=== PATIENT | male | born 1945 | race Hispanic/Latino ===

== ENCOUNTER 2018-11-17 20:36 | Emergency (ER) | payer OTHER ==
--- NOTE | 2018-11-17 21:34 | XRay Report ---
Right knee 3 views INDICATION: Right knee pain. IMPRESSION: Chronic posttraumatic deformity of the patella without acute abnormality. 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 Signer Name: Jeremy Leo MD Signed: 11/17/2018 9:30 PM Workstation Name: [id number]
[2018-11-17] MEDS ORDERED: DECADRON IM ONE (23:12)
[2018-11-17] MEDS ORDERED: NORCO 5/325 PO ONE (23:12)
[2018-11-17 23:47] VITALS: BP 160/84
--- NOTE | 2018-11-18 00:18 | Emergency Department Report ---
ED Lower Extremity HPI - General Chief Complaint: Extremity Injury, Lower Stated Complaint: R KNEE PAIN Time Seen by Provider: 11/17/18 23:10 Source: patient Mode of arrival: Wheelchair Limitations: No Limitations - History of Present Illness Initial Comments: pt is a 73-year-old male who presents for right knee pain history of trauma to same . Patient states he twisted his right knee one week ago and unable to get in to see orthopedics until next week pain described as 7/10 and is exacerbated with prolonged-standing or sitting, there is no numbness no tingling, pt does complain of swelling however intermittent swelling is chronic problem for this patient. MD Complaint: knee injury Onset/Timin -: days(s) Injury: Knee: Right Type of Injury: hyperextension Place: home Severity: moderate Severity scale (0 -10): 5 Improves With: rest Worsens With: weight bearing, movement, palpation Associated Symptoms: swelling, unable to bear weight - Related Data Previous Rx's Medication Instructions Recorded Last Taken Type Capsaicin/Me-Salicylate/Menth 1 applicatio TP TID PRN #1 tube 11/18/18 Unknown Rx [Medrox Ointment] Allergies Allergy/AdvReac Type Severity Reaction Status Date / Time No Known Allergies Allergy Unverified 11/17/18 20:40 ED Review of Systems ROS: Stated complaint: R KNEE PAIN Other details as noted in HPI Constitutional: denies: chills, fever Eyes: denies: eye pain, eye discharge, vision change ENT: denies: ear pain, throat pain Respiratory: denies: cough, shortness of breath, wheezing Cardiovascular: denies: chest pain, palpitations Endocrine: no symptoms reported Gastrointestinal: denies: abdominal pain, nausea, vomiting, diarrhea Genitourinary: denies: urgency, dysuria Musculoskeletal: joint swelling, arthralgia, myalgia. denies: back pain Skin: denies: rash, lesions Neurological: denies: headache, weakness, paresthesias Psychiatric: denies: anxiety, depression Hematological/Lymphatic: denies: easy bleeding, easy bruising ED Past Medical Hx - Surgical History Past Surgical History?: Yes Additional Surgical History: right knee s/p - Social History Smoking Status: Never Smoker Substance Use Type: None - Medications Home Medications: Home Medications Medication Instructions Recorded Confirmed Last Taken Type Capsaicin/Me-Salicylate/Menth 1 applicatio TP TID PRN #1 tube 11/18/18 Unknown Rx [Medrox Ointment] ED Physical Exam - General Limitations: No Limitations General appearance: alert, in no apparent distress - Head Head exam: Present: atraumatic, normocephalic - Eye Eye exam: Present: normal appearance, PERRL, EOMI Pupils: Present: normal accommodation - ENT ENT exam: Present: mucous membranes moist - Neck Neck exam: Present: normal inspection, full ROM. Absent: tenderness - Respiratory Respiratory exam: Present: normal lung sounds bilaterally. Absent: respiratory distress, wheezes, stridor, chest wall tenderness - Cardiovascular Cardiovascular Exam: Present: regular rate, normal rhythm, normal heart sounds. Absent: systolic murmur, diastolic murmur, rubs, gallop - GI/Abdominal GI/Abdominal exam: Present: soft, normal bowel sounds. Absent: distended, tenderness, bruit, hernia - Rectal Rectal exam: Present: deferred - Extremities Exam Extremities exam: Present: full ROM, tenderness, normal capillary refill, joint swelling. Absent: pedal edema, calf tenderness - Expanded Lower Extremity Exam Right Knee exam: Present: tenderness, swelling, pain w/ pronation/supination, pain/laxity with valgus, pain/laxity with varus, full knee extension. Absent: abrasion, laceration, ecchymosis, deformity, crepidus, dislocation, erythema, effusion, posterior draw sign Lower Leg exam: Present: normal inspection, full ROM Ankle exam: Present: normal inspection, full ROM Foot/Toe exam: Present: normal inspection, full ROM Neuro vascular tendon exam: Absent: pulse deficit, motor deficit, sensory deficit, tendon deficit Gait: Positive: observed and limited by pain - Back Exam Back exam: Present: normal inspection, full ROM. Absent: tenderness, CVA tenderness (R), CVA tenderness (L), muscle spasm, paraspinal tenderness, vertebral tenderness, rash noted - Neurological Exam Neurological exam: Present: alert, oriented X3, CN II-XII intact, normal gait, reflexes normal. Absent: motor sensory deficit - Psychiatric Psychiatric exam: Present: normal affect, normal mood - Skin Skin exam: Present: warm, dry, intact, normal color. Absent: rash ED Course Vital Signs 11/17/18 11/17/18 11/17/18 20:40 20:41 23:10 Temperature 99.5 F 99.5 F 98.7 F Pulse Rate 121 H 121 H 108 H Respiratory 18 18 18 Rate Blood Pressure 137/73 137/73 Blood Pressure 160/84 [Left] O2 Sat by Pulse 95 95 96 Oximetry ED Lower Extremity MDM - Radiology Data Radiology results: report reviewed, image reviewed Ordering Physician: AGUILA BENDER MD Date of Service: 11/17/18 Procedure(s): XR knee 3V RT Accession Number(s): [id number] cc: ED MD NAPO[place] Fluoro Time In Minutes: Right knee 3 views INDICATION: Right knee pain. IMPRESSION: Chronic posttraumatic deformity of the patella without acute ab normality. 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 Signer Name: Jeremy Leo MD Signed: 11/17/2018 9:30 PM Workstation Name: [id number] Transcribed By: Dictated By: Jeremy Leo MD Electronically Authenticated By: Jeremy Leo MD Signed Date/Time: 11/17/182129 DD/ 29 TD/TT: - Medical Decision Making X-ray no acute fracture plan small knee immobilizer and walker patient demonstrates some saline follow up with orthopedics in 2-3 days and return immediately should symptoms worsen pain is 210 at this time patient has pain medication at home patient has muscle relaxer was sent home with a 5 day burst of steroids will continue to use rice therapy and follow also as instructed patient and verbalized agreement and understanding of discharge plan patient is a stable condition at this time. Critical care attestation.: If time is entered above; I have spent that time in minutes in the direct care of this critically ill patient, excluding procedure time. ED Disposition Clinical Impression: Knee sprain Qualifiers: Encounter type: initial encounter Involved ligament of knee: unspecified ligament Laterality: right Qualified Code(s): S83.91XA - Sprain of unspecified site of right knee, initial encounter Chronic knee pain Qualifiers: Laterality: right Qualified Code(s): M25.561 - Pain in right knee; G89.29 - Other chronic pain Disposition: DC-01 TO HOME OR SELFCARE Is pt being admited?: No Does the pt Need Aspirin: No Condition: Stable Instructions: Arthralgia (ED), Knee Exercises (GEN), Knee Sprain (ED), Knee Immobilizer (ED) Prescriptions: Capsaicin/Me-Salicylate/Menth [Medrox Ointment] 1 applicatio TP TID PRN #1 tube PRN Reason: pain Referrals: RACHEL SIMMSMERRIMAC MD GEORGINA [Primary Care Provider] - 3-5 Days CORY STRINGER MD [Staff Physician] - 3-5 Days Forms: Work/School Release Form(ED) Time of Disposition: 00:31
== END 2018-11-18 01:27 | disposition home or self-care (01) ==
LOC: ED 20:36
DX: S83.91XA Sprain of unspecified site of right knee, initial encounter (principal); G89.29 Other chronic pain; Z98.890 Other specified postprocedural states; X50.1XXA Overexertion from prolonged static or awkward postures, initial encounter; Y93.89 Activity, other specified; Y92.009 Unspecified place in unspecified non-institutional (private) residence as the place of occurrence of the external cause; Y99.8 Other external cause status
CPT/HCPCS: 29505; 73562; 96372; 99283; J1100

== ENCOUNTER 2021-09-04 21:39 | Emergency (ER) | payer MEDICARE, OTHER ==
--- NOTE | 2021-09-05 02:02 | Emergency Department Report ---
ED General Adult HPI - General Chief complaint: High BP Stated complaint: HIGH BP Time Seen by Provider: 09/05/21 01:55 Source: patient Mode of arrival: Ambulatory Limitations: No Limitations - History of Present Illness Initial comments: 76-year-old male with a known history of hypertension reports being compliant with the medication presents emergency department complaining of sudden onset of a spike in blood pressure associated with a headache/pressure, and sudden onset dizziness lasting for a matter of seconds before slowly improving and presents emergency department seeking further outpatient treatment options. Currently states that he feels a dull pressure to the head with that but the dizziness has since resolved. Reports no current nausea vomiting, no chest pain, no palpitations, no fever, chills, sweats -: Sudden Location: head Radiation: non-radiation Quality: dull Consistency: constant Improves with: none Worsens with: none Associated Symptoms: denies other symptoms. denies: diaphoresis, loss of appetite, malaise, nausea/vomiting, rash, weakness - Related Data Previous Rx's Medication Instructions Recorded Last Taken Type Capsaicin/Me-Salicylate/Menth 1 applicatio TP TID PRN #1 tube 11/18/18 Unknown Rx [Medrox Ointment] Allergies Allergy/AdvReac Type Severity Reaction Status Date / Time No Known Allergies Allergy Verified 09/04/21 22:25 ED Review of Systems ROS: Stated complaint: HIGH BP Other details as noted in HPI Comment: All other systems reviewed and negative ED Past Medical Hx - Past Medical History Previous Medical History?: Yes Hx Hypertension: Yes - Surgical History Past Surgical History?: Yes Additional Surgical History: right knee s/p - Social History Smoking Status: Never Smoker Substance Use Type: None - Medications Home Medications: Home Medications Medication Instructions Recorded Confirmed Last Taken Type Capsaicin/Me-Salicylate/Menth 1 applicatio TP TID PRN #1 tube 11/18/18 Unknown Rx [Medrox Ointment] ED Physical Exam - General Limitations: No Limitations General appearance: alert, in no apparent distress - Head Head exam: Present: atraumatic, normocephalic - Eye Eye exam: Present: normal appearance, PERRL, EOMI, nystagmus. Absent: conjunctival injection, periorbital tenderness Pupils: Present: normal accommodation - ENT ENT exam: Present: normal exam, mucous membranes moist, TM's normal bilaterally - Neck Neck exam: Present: normal inspection, full ROM - Respiratory Respiratory exam: Present: normal lung sounds bilaterally. Absent: respiratory distress - Cardiovascular Cardiovascular Exam: Present: regular rate, normal rhythm. Absent: systolic murmur, diastolic murmur, rubs, gallop - GI/Abdominal GI/Abdominal exam: Present: soft, normal bowel sounds - Rectal Rectal exam: Present: deferred - Extremities Exam Extremities exam: Present: normal inspection - Back Exam Back exam: Present: normal inspection - Neurological Exam Neurological exam: Present: alert, oriented X3 - Psychiatric Psychiatric exam: Present: normal affect, normal mood - Skin Skin exam: Present: warm, dry, intact, normal color. Absent: rash ED Course Vital Signs 09/04/21 09/05/21 22:21 01:46 Temperature 97.8 F Pulse Rate 65 60 Respiratory 18 14 Rate Blood Pressure 181/83 Blood Pressure 168/81 [Left] O2 Sat by Pulse 95 100 Oximetry ED Medical Decision Making - Radiology Data Radiology results: [place] [id number] Cat Scan Report Signed Patient: CELESTINA HOBSON MR#: [id number] : 1945 Acct:[id number] Age/Sex: 76 / M ADM Date: 09/04/21 Loc: ED Attending Dr: Ordering Physician: JARAD OGLESBY Date of Service: 09/05/21 Procedure(s): CT head/brain wo con Accession Number(s): [id number] cc: JARAD OGLESBY CT HEAD WITHOUT CONTRAST INDICATION / CLINICAL INFORMATION: HTN and dizziness. TECHNIQUE: CT head was performed without administration of intravenous contrast. All CT scans at this location are performed using CT dose reduction for ALARA by means of automated exposure control. COMPARISON: None available. FINDINGS: CEREBRAL HEMISPHERES: There is no evidence of large territorial infarction or significant abnormality of gooden-white matter differentiation. Ventricles within normal limits. No midline shift. Basal cisterns patent. HEMORRHAGE: None. CEREBELLUM / BRAINSTEM: No significant abnormality. ORBITS: No significant abnormality. SOFT TISSUES: No significant abnormality. SKULL: No significant abnormality. PARANASAL SINUSES / MASTOID AIR CELLS: Normal as visualized. ADDITIONAL FINDINGS: None. IMPRESSION: 1. No acute intracranial abnormality. Signer Name: Chico Santiago II, MD Signed: 09/05/2021 3:38 AM Workstation Name: [id number] Transcribed By: TIMI Dictated By: CHICO SANTIAGO II, MD Electronically Authenticated By: CHICO SANTIAGO II, MD Signed Date/Time: 09/05/21337 DD/ 6 - Medical Decision Making Based on the history, exam, and findings presentation not consistent with syncope, seizure, stroke, meningitis, symptomatic anemia, increased ICP, ICH. Additionally I have a low suspicion for labyrinthitis, acute otitis media or other infectious process. Prior to discharge the symptoms are controlled the patient is functioning well speaking in full sentences he is able to sit and stand and ambulate with no limitations and is able to utilize his cell phone in the form of texting and talking with video check with with no delay. Advise follow-up with primary care provider within 24 to 48 hours. Presents to the emergency department complaining of high blood pressure. Patient is otherwise asymptomatic without confusion, chest pain, hematuria, or SOB. BP today is 168/81___ Patient is not currently on medication Doubt CV, AMI, heart failure, renal infarction or failure or other end organ damage. Disposition:Discussed with patient their elevated blood pressure and need for close outpatient management of their hypertension. Will provide a prescription for the patients previous antihypertensive medication and arrange for the patient to follow up in a primary care clinic Disposition: Discussed with patient their elevated blood pressure and need for close outpatient management of their hypertension. Will provide a prescription for amlodipine 5mg PO daily and arrange for the patient to follow up in a primary care clinic Critical care attestation.: If time is entered above; I have spent that time in minutes in the direct care of this critically ill patient, excluding procedure time. ED Disposition Clinical Impression: Hypertension, Headache, Normal CT scan of head Disposition: HOME / SELF CARE / HOMELESS Is pt being admited?: No Does the pt Need Aspirin: No Condition: Stable Instructions: Hypertension (ED), Preventing Hypertension, Hypertension, Adult
--- NOTE | 2021-09-05 03:51 | Cat Scan Report ---
CT HEAD WITHOUT CONTRAST INDICATION / CLINICAL INFORMATION: HTN and dizziness. TECHNIQUE: CT head was performed without administration of intravenous contrast. All CT scans at this location are performed using CT dose reduction for ALARA by means of automated exposure control. COMPARISON: None available. FINDINGS: CEREBRAL HEMISPHERES: There is no evidence of large territorial infarction or significant abnormality of gooden-white matter differentiation. Ventricles within normal limits. No midline shift. Basal ciste rns patent. HEMORRHAGE: None. CEREBELLUM / BRAINSTEM: No significant abnormality. ORBITS: No significant abnormality. SOFT TISSUES: No significant abnormality. SKULL: No significant abnormality. PARANASAL SINUSES / MASTOID AIR CELLS: Normal as visualized. ADDITIONAL FINDINGS: None. IMPRESSION: 1. No acute intracranial abnormality. Signer Name: Rajesh Rodriguez II, MD Signed: 09/05/2021 3:38 AM Workstation Name: [id number]
[2021-09-05 05:05] VITALS: BP 151/95
== END 2021-09-05 05:06 | disposition home or self-care (01) ==
LOC: ED 21:39
DX: I10 Essential (primary) hypertension (principal); R51.9 Headache, unspecified; R93.0 Abnormal findings on diagnostic imaging of skull and head, not elsewhere classified
CPT/HCPCS: 70450; 99283